=== PATIENT | female | born 1965 | race Caucasian/White ===

== ENCOUNTER → 2020-08-05 | Outpatient (CLI) | payer OTHER ==
--- NOTE | 2020-08-05 16:18 | XR ---
EXAMINATION TYPE: XR chest 2V, XR ribs RT DATE OF EXAM: 08/05/2020 COMPARISON: NONE HISTORY: Pain after lifting injury. TECHNIQUE: Frontal and lateral views of the chest are obtained. The frontal and oblique images right -sided ribs. FINDINGS: There is no focal air space opacity, pleural effusion, or pneumothorax seen. The cardiac silhouette size is upper limits of normal. The osseous structures are intact. Dedicated images THE right-sided ribs show no acute displaced fractures. Overlying soft tissue is unr emarkable. IMPRESSION: 1. No acute cardiopulmonary process. 2. No acute displaced right-sided rib fractures.
--- NOTE | 2020-08-05 16:19 | XR ---
EXAMINATION TYPE: XR shoulder complete RT DATE OF EXAM: 08/05/2020 CLINICAL HISTORY: Right-sided shoulder pain after trauma injury. TECHNIQUE: Three views of the right shoulder are obtained. COMPARISON: None. FINDINGS: There is no acute fracture/dislocation evident in the right shoulder. Moderate narrowing a cromioclavicular joint. Distal acromion morphology unremarkable. Glenohumeral joint is preserved. Th e visualized ribs are intact and unremarkable. IMPRESSION: There is no acute fracture or dislocation in the right shoulder.
== END | disposition home or self-care (01) ==
LOC: RAD 15:44
PROVIDERS: ATTEND Emergency Medicine
DX: S46.011A Strain of muscle(s) and tendon(s) of the rotator cuff of right shoulder, initial encounter (principal); R20.9 Unspecified disturbances of skin sensation
CPT/HCPCS: 71046